=== PATIENT | male | born 1955 | race Two or more races ===

== ENCOUNTER → 2017-07-16 | Outpatient (CLI) | payer SELFPAY ==
--- NOTE | 2017-07-16 16:19 | RADIOLOGY REPORT (SQ) ---
EXAM DESCRIPTION: FOOT RIGHT COMPLETE COMPLETED DATE/TIME: 07/16/2017 4:02 pm REASON FOR STUDY: M54.5 LOW BACK PAIN M79.671 PAIN IN RIGHT FOOT M54.5 LOW BACK PAIN M79.671 PAIN IN RIGHT FOOT COMPARISON: None. NUMBER OF VIEWS: Three views. TECHNIQUE: AP, lateral and oblique radiographic images acquired of the right foot. LIMITATIONS: None. FINDINGS: MINERALIZATION: Normal. BONES: No acute fracture or dislocation. Prominent plantar calcaneal spur. No worrisome bone lesion s. JOINTS: No effusions. SOFT TISSUES: No soft tissue swelling. No foreign body. OTHER: No other significant finding. IMPRESSION: PROMINENT HEEL SPUR. NO OTHER SIGNIFICANT FINDINGS. TECHNICAL DOCUMENTATION: JOB ID: [id number] [employer]- All Rights Reserved
--- NOTE | 2017-07-16 16:20 | RADIOLOGY REPORT (SQ) ---
EXAM DESCRIPTION: L SPINE WHOLE COMPLETED DATE/TIME: 07/16/2017 4:02 pm REASON FOR STUDY: M54.5 LOW BACK PAIN M79.671 PAIN IN RIGHT FOOT M54.5 LOW BACK PAIN M79.671 PAIN IN RIGHT FOOT COMPARISON: None. NUMBER OF VIEWS: Five views including obliques. TECHNIQUE: AP, lateral, oblique, and sacral radiographic images acquired of the lumbar spine. LIMITATIONS: None. FINDINGS: MINERALIZATION: Normal. SEGMENTATION: Normal. No transitional anatomy. ALIGNMENT: Normal. VERTEBRAE: Maintained height. No fracture or worrisome bone lesion. DISCS: Multilevel disc space narrowing with osteophytes. POSTERIOR ELEMENTS: Pedicles and facets are intact. No pars defect or posterior arch defects. HARDWARE: None in the spine. PARASPINAL SOFT TISSUES: Normal. PELVIS: Intact as visualized. No fractures or worrisome bone lesions. SI joints intact. OTHER: No other significant finding. IMPRESSION: MULTILEVEL DEGENERATIVE DISC DISEASE. NO ACUTE FINDINGS. TECHNICAL DOCUMENTATION: JOB ID: [id number] [employer]- All Rights Reserved
== END ==
LOC: RAD 15:22
PROVIDERS: ATTEND Family Medicine
DX: M54.5 Low back pain (principal); M51.36 Other intervertebral disc degeneration, lumbar region; M79.671 Pain in right foot; M77.31 Calcaneal spur, right foot
CPT/HCPCS: 72110

== ENCOUNTER → 2017-09-16 | Outpatient (CLI) | payer OTHER ==
[2017-09-16 09:57] LABS: ANION GAP 9 (5-19); BLOOD UREA NITROGEN 18 mg/dL (7-20); CALCIUM 9.2 mg/dL (8.4-10.2); CARBON DIOXIDE 27 mmol/L (22-30); CHLORIDE 106 mmol/L (98-107); CHOLESTEROL 231.29 mg/dL (0-200); GLUCOSE 89 mg/dL (75-110); POTASSIUM 4.7 mmol/L (3.6-5.0); SODIUM 141.7 mmol/L (137-145); TRIGLYCERIDES 119 mg/dL (<150)
[2017-09-16 10:07] LABS: DIRECT LDL 141 mg/dL (<100)
== END ==
LOC: CCC 08:13
DX: E66.3 Overweight (principal)
CPT/HCPCS: 36415; 80048; 80061; 83036

== ENCOUNTER → 2017-09-18 | Outpatient (CLI) | payer OTHER ==
[2017-09-18 19:08] LABS: ALANINE AMINOTRANSFERASE 37 U/L (21-72); ALKALINE PHOSPHATASE 73 U/L (38-126); ASPARTATE AMINO TRANSFERASE 26 U/L (17-59); BILIRUBIN,DIRECT 0.3 mg/dL (0.0-0.4); BILIRUBIN,TOTAL 0.3 mg/dL (0.2-1.3); TOTAL PROTEIN 7.4 g/dL (6.3-8.2)
== END ==
LOC: CCC 17:12
DX: Z13.9 Encounter for screening, unspecified (principal)
CPT/HCPCS: 36415; 80076